=== PATIENT | male | born 1945 | race Hispanic/Latino ===

== ENCOUNTER → 2023-02-13 | Outpatient (CLI) | payer OTHER | END | disposition home or self-care (01) | LOC: RAH 13:06 → EDBD 14:00 | PROVIDERS: ATTEND Chiropractor | DX: I11.9 Hypertensive heart disease without heart failure (principal); I25.10 Atherosclerotic heart disease of native coronary artery without angina pectoris; E11.9 Type 2 diabetes mellitus without complications; I35.8 Other nonrheumatic aortic valve disorders | CPT/HCPCS: 93306 ==